=== PATIENT | female | born 1980 | race Two or more races ===

== ENCOUNTER 2017-05-11 08:09 | Emergency (ER) | payer SELFPAY ==
[2017-05-11 08:19] VITALS: BP 130/88
--- NOTE | 2017-05-11 08:39 | EDM.PDOC ---
ED HPI GENERAL MEDICAL PROBLEM - General Chief Complaint: Chest Pain Stated Complaint: CHEST PAIN - 12 HOURS Time Seen by Provider: 05/11/17 08:28 Source of Information: Reports: Patient History Limitations: Reports: No Limitations - History of Present Illness INITIAL COMMENTS - FREE TEXT/NARRATIVE: 37-year-old female presents to the ED with left precordial chest pain which is constant with a pleuritic component at times. Much worse this morning with heaviness that started last night. Some radiation into the right arm and left neck. Also radiates through to her infrascapular area like an arrow was shot 3 to her chest. She's been ill with upper respiratory tract infection which sounds viral with nasal congestion and paroxysmal cough for the better part of 2 weeks. She works at [employer] which many of the elderly patients there have had influenza A. She did not receive a flu shot this year. Second problem is diarrhea loose watery yellow in consistency she's gone 4 times thus far this morning. Associated mild cramps. She has an appetite and she's hungry. She is not back on a full diet but is taking fluids adequately in terms of water and orange juice. She's not been on any antibiotics in the last 6 weeks. Onset: Other (Patient has had upper respiratory tract infection symptoms with nasal congestion and harsh paroxysmal cough for the better part of 12 days. Last night she developed more heaviness in the left precordial chest/with a pleuritic component to the pain was worsened by coughing. She relates reports she is still bringing up some sputum without any hemoptysis. No fever or chills now. She is having some loose stools 4-8 times per day. She denies any blood in the stool. Associated mild dull cramps. Chest pain) Onset Date: 05/10/17 Onset Time: 18:00 Duration: Hour(s): Location: Reports: Chest (Left precordial chest rating to to the infrascapular area of the back. Also left neck.) Quality: Reports: Ache, Stabbing Severity: Moderate Improves with: Reports: None Worsens with: Reports: Other, Movement Context: Denies: Activity, Exercise (Coughing), Lifting, Sick Contact, Trauma, Other Associated Symptoms: Reports: Chest Pain (See history of present illness), Cough (She is to present illness). Denies: Diaphoresis ( still coughing and with some sputum production. 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 Chest Pain Score (Numeric/FACES): 7 - Related Data Allergies Allergy/AdvReac Type Severity Reaction Status Date / Time No Known Allergies Allergy Verified 05/11/17 08:14 Home Meds: Home Meds Diclofenac Sodium [Voltaren] 50 mg PO BID #20 tab.ec 05/11/17 [Rx] predniSONE [Prednisone] 20 mg PO ASDIRECTED #15 tablet 05/11/17 [Rx] Past Medical History - Past Health History Medical/Surgical History: Denies Medical/Surgical History Psychiatric 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: Depression - Past Surgical History GI Surgical 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: Cholecystectomy Social & Family History - Family History Family Medical History: Noncontributory - Tobacco Use Smoking Status *Q: Never Smoker - Alcohol Use Days Per Week of Alcohol Use: 0 - Recreational Drug Use Recreational Drug Use: No - Living Situation & Occupation Living situation: Reports: Occupation: Employed ED ROS GENERAL - Review of Systems Review Of Systems: See Below Constitutional: Reports: Fever, Malaise, Fatigue, Decreased Appetite, Weight Loss (Initially but feels her appetite is returning.). Denies: Chills (With initial onset of illness) HEENT: Reports: Other (Did have nasal congestion and mild sore throat with illness) Respiratory: Reports: Pleuritic Chest Pain, Cough (Currently pleuritic left anterior chest pain intermittent paroxysmal cough with some sputum production by history). Denies: Shortness of Breath, Wheezing, Hemoptysis ( no hemoptysis) Cardiovascular: Reports: Chest Pain. Denies: Blood Pressure Problem, Claudication (See history of present illness), Dyspnea on Exertion, Edema, Lightheadedness, Orthopnea, Palpitations Endocrine: Reports: No Symptoms GI/Abdominal: Reports: Diarrhea (Loose yellow stools. Having anywhere between 4 and 8 per day. No blood has been noted by the patient.) : Reports: No Symptoms Musculoskeletal: Reports: No Symptoms Skin: Reports: No Symptoms Neurological: Reports: No Symptoms Psychiatric: Reports: No Symptoms ED EXAM, GENERAL - Physical Exam Exam: See Below Exam Limited By: No Limitations General Appearance: Alert, WD/WN, No Apparent Distress Eye Exam: Bilateral Eye: Normal Inspection Ears: Normal TMs Throat/Mouth: Normal Inspection, Normal Lips, Normal Teeth, Normal Oropharynx Head: Atraumatic, Normocephalic Neck: Normal Inspection, Supple, Non-Tender, Full Range of Motion. No: Lymphadenopathy (L), Lymphadenopathy (R), Thyromegaly Respiratory/Chest: No Respiratory Distress, Lungs Clear, Normal Breath Sounds, Other (Chest wall tenderness appreciated on palpation ribs 34 and 5 midclavicular line left side.) Cardiovascular: Normal Peripheral Pulses, Regular Rate, Rhythm, No Edema, No Gallop, No Murmur GI/Abdominal: Normal Bowel Sounds, Soft, Non-Tender, No Organomegaly, No Abnormal Bruit, No Mass, Pelvis Stable. No: Tender Back Exam: Normal Inspection, Full Range of Motion. No: CVA Tenderness (L), Paraspinal Tenderness Extremities: Normal Inspection, Normal Range of Motion, Non-Tender, No Pedal Edema Neurological: Alert, Oriented, CN II-XII Intact, Normal Cognition, Normal Gait Psychiatric: Normal Affect, Normal Mood Skin Exam: Warm, Dry, Intact, Normal Color, No Rash EKG INTERPRETATION EKG Date: 05/11/17 Time: 08:22 Rhythm: NSR Rate (Beats/Min): 94 [place]: LAD-Left [place] Deviation (Mild that -8.) P-Wave: Present QRS: Normal ST-T: Normal QT: Normal EKG Interpretation Comments: Borderline ECG. Course - Vital Signs Last Recorded V/S: Last Vital Signs Temp 36.9 C 05/11/17 08:15 Pulse 89 05/11/17 08:15 Resp 16 05/11/17 08:15 BP 130/88 05/11/17 08:15 Pulse Ox 100 05/11/17 08:15 Orthostatic Blood Pressure [ 114/76 Standing] Orthostatic Blood Pressure [ 113/81 Supine] - Orders/Labs/Meds Orders: Active Orders 24 hr Category Date Time Status Orthostatic Vital Signs [RC] ASDIRECTED Care 05/11/17 08:39 Active Labs: Laboratory Tests 05/11/17 05/11/17 05/11/17 Range/Units 09:35 09:35 11:16 WBC 6.13 (3.98-10.04) K/mm3 RBC 4.58 (3.98-5.22) M/mm3 Hgb 14.0 (11.2-15.7) gm/L Hct 41.9 (34.1-44.9) % MCV 91.5 (79.4-94.8) fl MCH 30.6 (25.6-32.2) pg MCHC 33.4 (32.2-35.5) g/dl RDW Std Deviation 41.1 (36.4-46.3) fL Plt Count 249 (182-369) K/mm3 MPV 9.7 (9.4-12.3) fl Neutrophils % (Manual) 71 H (40-60) % Band Neutrophils % 2 (0-10) % Lymphocytes % (Manual) 25 (20-40) % Atypical Lymphs % 0 % Monocytes % (Manual) 1 L (2-10) % Eosinophils % (Manual) 1 (0.7-5.8) % Basophils % (Manual) 0 L (0.1-1.2) Platelet Estimate Adequate RBC Morph Comment Normal Sodium 141 (136-145) mEq/L Potassium 3.9 (3.5-5.1) mEq/L Chloride 106 (98-107) mEq/L Carbon Dioxide 23 (21-32) mEq/L Anion Gap 15.9 H (5-15) BUN 9 (7-18) mg/dL Creatinine 0.7 (0.55-1.02) mg/dL Est Cr Clr Drug Dosing 86.18 mL/min Estimated GFR (MDRD) > 60 (>60) mL/min BUN/Creatinine Ratio 12.9 L (14-18) Glucose 95 (74-106) mg/dL Calcium 9.2 (8.5-10.1) mg/dL Total Bilirubin 0.3 (0.2-1.0) mg/dL AST 15 (15-37) U/L ALT 31 (14-59) U/L Alkaline Phosphatase 53 (46-116) U/L Troponin I < 0.017 (0.00-0.056) ng/mL C-Reactive Protein 0.5 (<1.0) mg/dL Total Protein 7.5 (6.4-8.2) g/dl Albumin 4.0 (3.4-5.0) g/dl Globulin 3.5 gm/dL Albumin/Globulin Ratio 1.1 (1-2) - Radiology Interpretation Free Text/Narrative:: 37-year-old female presents to the ED with reported heaviness left precordial chest that started last evening associate with a intermittent pleuritic component to the pain. She is been ill with upper respiratory tract infection for the better part of 12 days. Still has a bit of a cough that is productive and some diarrhea. She states she's had loose stools for the last several days without any recent antibiotic usage. He is able to eat most things although she' s not back on full diet. She feels she is taking adequate fluids. She does have a pleuritic component to the pain with deep inspiration. Examination reveals pain localized to left anterior chest wall ribs 345 midclavicular line and radiating towards the left axilla. Plan she works at [employer] and is been exposed to influenza. We'll have an influenza screen done even though she may have well completed the course of illness. Two-view chest x-ray be obtained to rule out a pneumonia. Routine labs and orthostatic BPs to be done. Her ECG showed sinus rhythm at 94/m with the mid mild left axis deviation of -8 otherwise normal ECG. Current chest pain does not appear to be cardiac in origin. - Re-Assessments/Exams Free Text/Narrative Re-Assessment/Exam: 05/11/17 09:08 2 view chest x-ray is been completed and is is within normal limits. There is no signs of pneumonia or abnormalities of the pleura or ribs. BX silhouette is normal. 05/11/17 11:03 Labs reveal a normal white count at 6.13 with 71% neutrophils and 2% bands. Hemoglobin is 14 wit hematocrit of 41.9. Platelet count normal 249 ,000. Chemistry reveals a slightly elevated anion gap at 15.9 normal renal function with a creatinine of 0.7. Glucose is 95. C-reactive protein is less than 0.5. Influenza screen is negative. 05/11/17 11:35: Patient is feeling better. Reassured that no heart condition exists. Decision made to place her on short course of prednisone 20 mg twice a day for the next 5 days then 20 mg once daily in the morning for another 5 days and Voltaren 50 mg twice a day for the next 10 days to relieve pain and inflammation chest wall. She will follow-up with personal care physician if any further problem's occur. She was advised that she may get this back off and on in the future and taking anti-inflammatories will usually settle things down. Departure - Departure Time of Disposition: 11:33 Disposition: Home, Self-Care 01 Condition: Fair Clinical Impression: Non-cardiac chest pain, Acute chest wall pain Prescriptions: Diclofenac Sodium [Voltaren] 50 mg PO BID #20 tab.ec predniSONE [Prednisone] 20 mg PO ASDIRECTED #15 tablet Instructions: Chest Wall Pain, [id number] Referrals: Kelly Ness NP [Primary Care Provider] - Forms: ED Department Discharge Additional Instructions: Evaluation the emergency room this morning in regards to development of left anterior chest pain which appears to be chest wall in origin with pain particularly ribs 34 and 5 on examination. This is followed a recent upper respiratory tract infection which is viral by history with nasal congestion and cough. Influenza screen today was negative. Chest x-ray was negative for any infection or other maladies of the lung lining or the ribs. Test to prove to be within normal limits with no signs of infection and negative markers for heart attack. Pain is therefore chest wall in origin coming from the lining of the ribs on the left upper anterior chest. Treatment is anti-inflammatory Voltaren 50 g twice daily for the next 10 days to relieve pain and inflammation. Note this will take about a day and a half to start to work well. Also suggest prednisone 20 mg with breakfast and supper for 5 days and then once only in the morning for another 5 days in an effort to further reduce inflammation. Also takes about a day to become effective. Activity as tolerated with no restrictions at this time. Of note -chest wall pain may be aggravated by pushing and pulling activities. - My Orders Last 24 Hours: My Active Orders 05/11/17 08:39 Orthostatic Vital Signs [RC] ASDIRECTED - Assessment/Plan Last 24 Hours: My Active Orders 05/11/17 08:39 Orthostatic Vital Signs [RC] ASDIRECTED
--- NOTE | 2017-05-11 09:23 | CR ---
Chest: Two views of the chest were obtained. Comparison: Prior chest x-ray of 08/11/15. Heart size and mediastinum are normal. Lungs are clear. Bony structures are unremarkable. Impression: 1. Nothing acute is identified on two-view chest x-ray. Diagnostic code #1
== END 2017-05-11 11:45 | disposition home or self-care (01) ==
LOC: JD.ED 08:09
DX: R07.89 Other chest pain (principal)
CPT/HCPCS: 36415; 71046; 71046-26; 80053; 84484; 85025; 86140; 87804; 93010; 99283-25; 99285

== ENCOUNTER 2017-10-26 07:32 | Day surgery (SDC) | payer BC ==
[~2017-10-26 07:32] MED LIST: Lidocaine 1%/Sod Bicarbonate in NS 8.4% 1 ML Syringe IDERM PRN; Sodium Chloride 0.9% 10 ML Syringe FLUSH PRN
--- NOTE | 2017-10-26 07:51 | PCM.PREANE ---
Preanesthetic Assessment - Anesthesia/Transfusion/Family Hx Anesthesia History: Prior Anesthesia Without Reaction Family History of Anesthesia Reaction: No Transfusion History: No Prior Transfusion(s) Intubation History: Unknown - Review of Systems General: No Symptoms Pulmonary: No Symptoms, Pleuritic Chest Pain (Reported to ER in April with negative heart workup noted.) Cardiovascular: No Symptoms, Palpitations (anxiety attacks), Lightheadedness ( with anxiety attacks) Gastrointestinal: No Symptoms (History of acute pancreatitits 2002 with gall bladder attack.) Neurological: No Symptoms (history of vertigo, but no PONV with cholecystectomy) Other: Reports: Sinus Problem (seasonal allergies), Depression, Anxiety - Physical Assessment NPO Status Date: 10/25/17 NPO Status Time: 21:30 Pulse: 87 O2 Sat by Pulse Oximetry: 100 Respiratory Rate: 20 Blood Pressure: 121/77 Temperature: 37.0 C Height: 1.57 m Weight: 73 kg ASA Class: 2 Mental Status: Alert & Oriented x3 Airway Class: Mallampati = 2 Dentition: Reports: Normal Dentition, Caries Thyro-Mental Finger Breadths: 3 Mouth Opening Finger Breadths: 3 ROM/Head Extension: Full Lungs: Clear to Auscultation, Normal Respiratory Effort Cardiovascular: Regular Rate, Regular Rhythm, No Murmurs - Lab Values: Laboratory Last Values WBC 5.47 K/mm3 (3.98-10.04) 10/25/17 11:11 RBC 4.62 M/mm3 (3.98-5.22) 10/25/17 11:11 Hgb 14.1 gm/L (11.2-15.7) 10/25/17 11:11 Hct 42.5 % (34.1-44.9) 10/25/17 11:11 MCV 92.0 fl (79.4-94.8) 10/25/17 11:11 MCH 30.5 pg (25.6-32.2) 10/25/17 11:11 MCHC 33.2 g/dl (32.2-35.5) 10/25/17 11:11 RDW Std Deviation 41.6 fL (36.4-46.3) 10/25/17 11:11 Plt Count 272 K/mm3 (182-369) 10/25/17 11:11 MPV 9.5 fl (9.4-12.3) 10/25/17 11:11 Neut % (Auto) 60.6 % (34.0-71.1) 10/25/17 11:11 Lymph % (Auto) 26.9 % (19.3-51.7) 10/25/17 11:11 [place] % (Auto) 11.2 % (4.7-12.5) 10/25/17 11:11 Eos % (Auto) 0.9 (0.7-5.8) 10/25/17 11:11 Baso % (Auto) 0.2 % (0.1-1.2) 10/25/17 11:11 Neut # (Auto) 3.32 K/mm3 (1.56-6.13) 10/25/17 11:11 Lymph # (Auto) 1.47 K/mm3 (1.18-3.74) 10/25/17 11:11 [place] # (Auto) 0.61 K/mm3 (0.24-0.36) H 10/25/17 11:11 Eos # (Auto) 0.05 K/mm3 (0.04-0.36) 10/25/17 11:11 Baso # (Auto) 0.01 K/mm3 (0.01-0.08) 10/25/17 11:11 Creatinine 0.8 mg/dL (0.55-1.02) 10/25/17 11:11 Est Cr Clr Drug Dosing TNP 10/25/17 11:11 Estimated GFR (MDRD) > 60 mL/min (>60) 10/25/17 11:11 Urine Color Yellow (Yellow) 10/25/17 11:11 Urine Appearance Clear (Clear) 10/25/17 11:11 Urine pH 6.0 (5.0-8.0) 10/25/17 11:11 Ur Specific [place] 1.020 (1.005-1.030) 10/25/17 11:11 Urine Protein Negative (Negative) 10/25/17 11:11 Urine Glucose (UA) Negative (Negative) 10/25/17 11:11 Urine Ketones Negative (Negative) 10/25/17 11:11 Urine Occult Blood 1+ (Negative) H 10/25/17 11:11 Urine Nitrite Negative (Negative) 10/25/17 11:11 Urine Bilirubin Negative (Negative) 10/25/17 11:11 Urine Urobilinogen 0.2 (0.2-1.0) 10/25/17 11:11 Ur Leukocyte Esterase Trace (Negative) H 10/25/17 11:11 Urine RBC 0-5 /hpf (0-5) 10/25/17 11:11 Urine WBC 0-5 /hpf (0-5) 10/25/17 11:11 Ur Epithelial Cells 0-5 /hpf (0-5) 10/25/17 11:11 Urine Bacteria Not seen /hpf (FEW) 10/25/17 11:11 Urine Mucus Not seen /hpf (FEW) 10/25/17 11:11 Blood Type O POSITIVE 10/25/17 11:11 Gel Antibody Screen Negative 10/25/17 11:11 Above labs reviewed and noted and within acceptable ranges to proceed with scheduled procedure. - Imaging/EKG Impressions: EKG: SR rate = 94 CXR: negative - Allergies Allergies/Adverse Reactions: Allergies Allergy/AdvReac Type Severity Reaction Status Date / Time No Known Allergies Allergy Verified 10/25/17 12:15 - Anesthesia Plan Pre-Op Medication Ordered: None - Acknowledgements Anesthesia Type Planned: General Anesthesia Pt an Appropriate Candidate for the Planned Anesthesia: Yes Alternatives and Risks of Anesthesia Discussed w Pt/Guardian: Yes Pt/Guardian Understands and Agrees with Anesthesia Plan: Yes PreAnesthesia Questionnaire - Past Health History Medical/Surgical History: Denies Medical/Surgical History HEENT 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: Impaired Vision Cardiovascular 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: None Respiratory 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: None Gastrointestinal 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: Pancreatitis Genitourinary 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: None 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: , Other (See Below) Other OB/BYN History: dysmenorrhea, irregular menses, menorrhagia, pelvic congestion syndrome Musculoskeletal 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: None Neurological 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: None Psychiatric 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: Anxiety, Depression, Other (See Below) Other Psychiatric History: insomnia Endocrine/Metabolic 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: None Hematologic 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: None Immunologic 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: None Oncologic (Cancer) 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: None Dermatologic 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: None - Past Surgical History Head Surgeries/Procedures: Reports: None HEENT Surgical 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: None Cardiovascular Surgical 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: None Respiratory Surgical 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: None GI Surgical 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: Cholecystectomy Female Surgical 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: None Male Surgical 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: None Endocrine Surgical 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: None Neurological Surgical 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: None Musculoskeletal Surgical 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: None Dermatological Surgical 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: None - SUBSTANCE USE Smoking Status *Q: Never Smoker Recreational Drug Use History: No - HOME MEDS Home Medications: Home Meds DULoxetine HCl [Duloxetine HCl] 60 mg PO DAILY 10/25/17 [History] Zolpidem Tartrate 5 mg PO BEDTIME PRN 10/25/17 [History] - CURRENT (IN HOUSE) MEDS Current Meds: Current Medications Lactated Ringer's (Ringers, Lactated) 1,000 mls @ 125 mls/hr IV ASDIRECTED BRANDON Stop: 10/26/17 23:00 Lidocaine/Sodium Bicarbonate (Buffered Lidocaine 1% In Ns 8.4%) 0.25 ml IDERM ONETIME PRN PRN Reason: Prior to IV Start Stop: 10/26/17 18:00 Sodium Chloride (Saline Flush) 10 ml FLUSH ASDIRECTED PRN PRN Reason: Keep Vein Open Stop: 10/26/17 18:00
[2017-10-26] MEDS: Lactated Ringers 1,000 ML IV SCH ×2 (07:55→12:48)
[2017-10-26] MEDS ORDERED: Dexamethasone 4 MG/ML SDV ONE (08:21)
[2017-10-26] MEDS ORDERED: Ondansetron 4 MG/2 ML SDV ONE (08:21)
[2017-10-26] MEDS ORDERED: Propofol 200 MG/20 ML SDV ONE (08:21)
[2017-10-26] MEDS ORDERED: Ketorolac 30 MG/ML SDV ONE (08:21)
[2017-10-26] MEDS ORDERED: Rocuronium 50 MG/5 ML Vial ONE (08:21)
[2017-10-26] MEDS ORDERED: Lactated Ringers 1,000 ML ONE (08:21)
[2017-10-26] MEDS ORDERED: ceFAZolin 1 GM Vial ONE (08:21)
[2017-10-26] MEDS ORDERED: HYDROmorphone 0.5 MG/0.5 ML Syringe ONE (08:21)
[2017-10-26] MEDS ORDERED: Lidocaine 1% 4 ML ONE (08:21)
[2017-10-26] MEDS ORDERED: Midazolam 1 MG/ML 2 ML SDV ONE (08:22)
[2017-10-26] MEDS ORDERED: fentaNYL 250 MCG/5 ML SDV ONE (08:23)
[2017-10-26] MEDS ORDERED: Sodium Chloride 0.9% 50 ML SDV ONE (08:39)
[2017-10-26] MEDS ORDERED: Lidocaine 1% with EPINEPHrine 1:100,000 20 ML MDV ONE (08:39)
[2017-10-26] MEDS ORDERED: Ondansetron 4 MG/2 ML SDV IVPUSH PRN ×2 (09:38→10:17)
[2017-10-26] MEDS ORDERED: Meperidine PF 50 MG/ML Syringe IVPUSH PRN (09:38)
[2017-10-26] MEDS ORDERED: ePHEDrine 50 MG/ML SDV IVPUSH PRN (09:38)
[2017-10-26] MEDS ORDERED: Midazolam 1 MG/ML 2 ML SDV IVPUSH PRN (09:38)
[2017-10-26] MEDS ORDERED: diphenhydrAMINE 50 MG/ML SDV IVPUSH PRN (09:38)
[2017-10-26] MEDS ORDERED: HYDROmorphone 0.5 MG/0.5 ML Syringe IVPUSH PRN (09:39)
[2017-10-26] MEDS ORDERED: Neostigmine Methylsulfate 1 MG/ML 5 ML Syringe ONE (09:41)
--- NOTE | 2017-10-26 10:22 | PCM.OPNOTE ---
- General Post-Op/Procedure Note Date of Surgery/Procedure: 10/26/17 Operative Procedure(s): Total vaginal hysterectomy with bilateral salpingectomy Findings: Uterus tubes and ovaries appeared to be relatively normal. Cervix is multiparous in appearance Pre Op Diagnosis: 1. Menorrhagia. 2. Dysmenorrhea. 3. Pelvic congestion syndrome Post-Op Diagnosis: Same Anesthesia Technique: General ET Tube Other Anesthesia Type: Lidocaine quarter percent with epinephrine Primary Surgeon: Aung Noble Secondary Surgeon: Jayden Joiner Anesthesia Provider: Naty Hopkins General Purchasing Agent: Nidia Hatch Reason General Purchasing Agent Was Necessary: Retraction, assistance, quality of care, patient safety Role of General Purchasing Agent: Retraction, assistance Pathology: Uterus, tubes and ovaries in one container Fluid Replacement, Intraop: 1,100 EBL in mLs: 220 Complications: None Condition: Good Free Text/Narrative:: Surgery duration: 42 minutes Procedure: The patient was placed in supine position on the operating table. General endotracheal anesthesia was accomplished. After positioning, and adequate prep and drape, the procedure was then performed. Sterile speculum was placed in the vagina and cervix was visualized. Cervix was injected with lidocaine quarter percent with epinephrine-20 mL used. A full circumference incision was made in the cervical epithelium. The bladder was pushed well back off cervix. Posterior cul-de-sac was then entered sharply without problems. Left uterosacral was crossclamped with a Enseal vessel closure system. The left uterosacral and then the right uterosacral ligament pedicles were developed using the Enseal system. The anterior cul-de-sac was then entered without problems and the uterine vasculature, cardinal ligament and broad ligament then developed using Enseal vessel closure system. The uterus was inverted at this time and upper broad ligament fallopian tube pedicles were crossclamped with Tyrel clamps. Specimen was totally removed. Both these pedicles were then secured with a Enseal vessel closure system. Left and right fallopian tube was normal in appearance.. Using Enseal vessel closure system each of the tubes was then removed and sent with the specimen. The Enseal vessel closure system was used to remove both ovaries. The patient was found to be hemostatically intact at this time. Vaginal cuff was sutured for hemostatic reasons with a running locked suture of 0 Monocryl from the 2 o' clock position to the 10 o'clock position posteriorly. Vaginal cuff was then closed from right to left side with a running locked suture of 0 Monocryl. Patient was returned to supine position and awakened from general endotracheal anesthesia. She tolerated the procedure was then left the operating room in satisfactory condition.
--- NOTE | 2017-10-26 10:34 | PCM.POSTAN ---
POST ANESTHESIA ASSESSMENT - MENTAL STATUS Mental Status: Alert - VITAL SIGNS Pulse Rate: 76 SaO2: 99 Resp Rate: 17 Blood Pressure: 99/60 Temperature: 36.8 C - RESPIRATORY Respiratory Status: Respiratory Rate WNL, Airway Patent, O2 Saturation Stable, Supplemental Oxygen - CARDIOVASCULAR CV Status: Pulse Rate WNL, Blood Pressure Stable - GASTROINTESTINAL GI Status: No Symptoms - POST OP HYDRATION Hydration Status: Adequate & Stable
[2017-10-26] MEDS: fentaNYL 100 MCG/2 ML SDV IVPUSH PRN ×2 (10:35→10:57)
--- NOTE | 2017-10-26 11:19 | PCM48HPAN ---
Post Anesthesia Note - EVALUATION WITHIN 48HRS OF ANESTHETIC Vital Signs in Normal Range: Yes Patient Participated in Evaluation: Yes Respiratory Function Stable: Yes Airway Patent: Yes Cardiovascular Function Stable: Yes Hydration Status Stable: Yes Pain Control Satisfactory: Yes Nausea and Vomiting Control Satisfactory: Yes Mental Status Recovered: Yes
[2017-10-26] MEDS: Acetaminophen/oxyCODONE 325-5 MG Tab PO PRN ×2 (11:50→12:41)
[2017-10-26 14:48] VITALS: BP 113/68
== END 2017-10-26 14:40 | disposition home or self-care (01) ==
LOC: JD.SDS 07:32
PROVIDERS: ATTEND Obstetrics & Gynecology
DX: N80.0 Endometriosis of uterus (principal); N72 Inflammatory disease of cervix uteri; N88.8 Other specified noninflammatory disorders of cervix uteri; N83.8 Other noninflammatory disorders of ovary, fallopian tube and broad ligament; N94.89 Other specified conditions associated with female genital organs and menstrual cycle; F41.9 Anxiety disorder, unspecified; F32.9 Major depressive disorder, single episode, unspecified; Z79.899 Other long term (current) drug therapy
CPT/HCPCS: 36415; 58262; 81001; 81025; 82565; 85025; 86850; 86900; 86901; 87086; A9270; J0690; J1100; J1170; J1885; J2001; J2250; J2405; J2710; J3010; J7120; J2704

== ENCOUNTER 2017-10-26 20:46 | Emergency (ER) | payer BC ==
[2017-10-26 20:55] VITALS: BP 131/78
--- NOTE | 2017-10-26 21:46 | EDM.PDOC ---
ED HPI GENERAL MEDICAL PROBLEM - General Chief Complaint: Gastrointestinal Problem Stated Complaint: NAUSEA Time Seen by Provider: 10/26/17 21:15 Source of Information: Reports: Patient History Limitations: Reports: No Limitations - History of Present Illness INITIAL COMMENTS - FREE TEXT/NARRATIVE: Naa is a 37yo female presents ambulatory to ED tonight accompanied by her with nausea and vomiting today. She is s/p vaginal hysterectomy this morning with Dr. Noble. States she took percocet around noon and again at 4: 30pm, she has not eaten today. She was nauseated most of the day, has vomited twice since 4pm. She feels very anxious tonight. No f/c/s, no diarrhea- no BM today. No CP, SOB, palpitations. She has had a LYLES today. NKDA Onset: Today Location: Reports: Abdomen Perineal Area Pain Score (Numeric/FACES): 3 - Related Data Allergies Allergy/AdvReac Type Severity Reaction Status Date / Time No Known Allergies Allergy Verified 10/26/17 20:51 Home Meds: Home Meds DULoxetine HCl [Duloxetine HCl] 60 mg PO DAILY 10/25/17 [History] Zolpidem Tartrate 5 mg PO BEDTIME PRN 10/25/17 [History] Acetaminophen/oxyCODONE [Percocet 325-5 MG] 2 tab PO Q4H PRN tablet 10/26/17 [ Rx] Ibuprofen 600 mg PO Q4H PRN #30 tablet 10/26/17 [Rx] Past Medical History - Past Health History Medical/Surgical History: Denies Medical/Surgical History HEENT 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: Impaired Vision Cardiovascular 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: None Respiratory 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: None Gastrointestinal 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: Pancreatitis Genitourinary 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: None 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: , 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 (See Below) 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: dysmenorrhea, irregular menses, menorrhagia, pelvic congestion syndrome Musculoskeletal 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: None Neurological 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: None Psychiatric 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: Anxiety, Depression, Other (See Below) Other Psychiatric History: insomnia Endocrine/Metabolic 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: None Hematologic 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: None Immunologic 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: None Oncologic (Cancer) 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: None Dermatologic 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: None - Past Surgical History Head Surgeries/Procedures: Reports: None HEENT Surgical 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: None Cardiovascular Surgical 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: None Respiratory Surgical 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: None GI Surgical 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: Cholecystectomy Female Surgical 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: None, Hysterectomy Endocrine Surgical 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: None Neurological Surgical 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: None Musculoskeletal Surgical 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: None Dermatological Surgical 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: None Social & Family History - Family History Family Medical History: Noncontributory - Tobacco Use Smoking Status *Q: Never Smoker - Caffeine Use Caffeine Use: Reports: Tea - Living Situation & Occupation Living situation: Reports: Occupation: Employed ED ROS GENERAL - Review of Systems Review Of Systems: ROS reveals no pertinent complaints other than HPI. Constitutional: Reports: Malaise, Weakness, Fatigue, Decreased Appetite. Denies : Fever, Chills, Diaphoresis HEENT: Reports: No Symptoms Respiratory: Reports: No Symptoms. Denies: Shortness of Breath, Cough Cardiovascular: Reports: No Symptoms. Denies: Chest Pain, Palpitations GI/Abdominal: Reports: Abdominal Pain (pelvic, s/p hysterectomy today, no epigastric pain), Nausea, Vomiting. Denies: Constipation, Diarrhea, Hematemesis : Reports: No Symptoms, Other ("normal" vaginal bleeding, nothing concerning) Neurological: Reports: Dizziness Psychiatric: Reports: Anxiety ED EXAM, GI/ABD - Physical Exam Exam: See Below Exam Limited By: No Limitations General Appearance: Alert, WD/WN, No Apparent Distress Eyes: Bilateral: EOMI Ears: Normal External Exam, Hearing Grossly Normal Nose: Normal Inspection Throat/Mouth: Normal Inspection, Normal Lips, Normal Voice, No Airway Compromise Head: Atraumatic, Normocephalic Neck: Normal Inspection Respiratory/Chest: No Respiratory Distress, Lungs Clear, Normal Breath Sounds Cardiovascular: Regular Rate, Rhythm, No Edema, No Murmur GI/Abdominal Exam: Normal Bowel Sounds, Soft, Tender (mild tenderness to lower abd/pelvis, no epigastric pain). No: Guarding, Rigid, Rebound (Female) Exam: Deferred Rectal (Female) Exam: Deferred Back Exam: Normal Inspection Extremities: Normal Inspection, No Pedal Edema Neurological: Alert, Oriented, CN II-XII Intact, Normal Cognition Psychiatric: Normal Affect, Normal Mood Skin Exam: Warm, Dry, Intact Course - Vital Signs Last Recorded V/S: Last Vital Signs Temp 98.3 F 10/26/17 20:51 Pulse 94 10/26/17 20:51 Resp BP 131/78 10/26/17 20:51 Pulse Ox 98 10/26/17 20:51 - Orders/Labs/Meds Labs: Laboratory Tests 10/26/17 Range/Units 22:30 Sodium 133 L (136-145) mEq/L Potassium 3.8 (3.5-5.1) mEq/L Chloride 99 (98-107) mEq/L Carbon Dioxide 25 (21-32) mEq/L Anion Gap 12.8 (5-15) BUN 8 (7-18) mg/dL Creatinine 0.7 (0.55-1.02) mg/dL Est Cr Clr Drug Dosing 86.18 mL/min Estimated GFR (MDRD) > 60 (>60) mL/min BUN/Creatinine Ratio 11.4 L (14-18) Glucose 121 H (74-106) mg/dL Calcium 8.8 (8.5-10.1) mg/dL Meds: Medications Discontinued Medications Generic Name Dose Route Start Last Admin Trade Name Freq PRN Reason Stop Dose Admin Famotidine 20 mg 10/26/17 21:57 10/26/17 22:25 Pepcid IVPUSH 10/26/17 21:58 20 mg ONETIME ONE Administration Sodium Chloride 1,000 mls @ 999 mls/hr 10/26/17 21:57 10/26/17 22:25 Normal Saline IV 10/26/17 22:57 999 mls/hr ONETIME ONE Administration Lorazepam 0.25 mg 10/26/17 21:57 10/26/17 22:25 Ativan IVPUSH 10/26/17 21:58 0.25 mg ONETIME ONE Administration Ondansetron HCl 4 mg 10/26/17 21:57 10/26/17 22:25 Zofran IVPUSH 10/26/17 21:58 4 mg ONETIME ONE Administration - Re-Assessments/Exams Free Text/Narrative Re-Assessment/Exam: 10/26/17 22:51 Patient feels very dry and parched- IVF ordered along with zofran, small dose of ativan for anxiety and pepcid IVP. BMP ordered and still pending. Free Text/Narrative Re-Assessment/Exam: 10/26/17 23:26 Feeling much better, nausea resolved, anxiety improved. Will rx zofran from [facility], recommend take all pain medications/motrin with food. Review essentially normal lab results. After fluids finished and if she tolerates crackers/water she will be discharged home. Departure - Departure Time of Disposition: 23:27 Disposition: Home, Self-Care 01 Condition: Good Clinical Impression: Nausea and vomiting after administration of anesthetic agent - Discharge Information *PRESCRIPTION DRUG MONITORING PROGRAM REVIEWED*: Not Applicable *COPY OF PRESCRIPTION DRUG MONITORING REPORT IN PATIENT JAIRO: Not Applicable Instructions: Nausea and Vomiting, Adult, Pain Medicine Instructions, Easy-to- Read Referrals: Aung Noble MD [Primary Care Provider] - Forms: ED Department Discharge Additional Instructions: Push fluids, bland foods. Take all pain medication with food. Your nausea and vomiting is likely due to taking pain medications on an empty stomach today. Follow up with Dr. Noble as instructed for postoperative check Follow up with Primary Care provider if not improving in the next 1-2 days, you can return to ER if needed for vomiting that is persistent, fever, other concerns.
[2017-10-26] MEDS ORDERED: Sodium Chloride 0.9% 1,000 ML IV ONE (21:57)
[2017-10-26] MEDS ORDERED: Famotidine 20 MG/2 ML SDV IVPUSH ONE (21:57)
[2017-10-26] MEDS ORDERED: Ondansetron 4 MG/2 ML SDV IVPUSH ONE (21:57)
[2017-10-26] MEDS ORDERED: LORazepam 2 MG/ML SDV IVPUSH ONE (21:57)
== END 2017-10-26 23:44 | disposition home or self-care (01) ==
LOC: JD.ED 20:46
DX: R11.2 Nausea with vomiting, unspecified (principal); T39.1X5A Adverse effect of 4-Aminophenol derivatives, initial encounter; F41.9 Anxiety disorder, unspecified; F32.9 Major depressive disorder, single episode, unspecified; Z79.899 Other long term (current) drug therapy
CPT/HCPCS: 36415; 80048; 96361; 96374; 96375; 99283; J2060; J2405; J7040; 99284

== ENCOUNTER 2017-11-07 12:06 | Emergency (ER) | payer BC ==
[2017-11-07 12:15] VITALS: BP 103/66
--- NOTE | 2017-11-07 13:26 | EDM.PDOC ---
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 She states that when she stands up she feels like "something is going to fall out" and there is 8/10 pain and pressure in the left lower quadrant as well as on the outer aspect of the periarea. She is currently taking Tylenol and Ibuprofen for pain every 4 hours, which has helped alleviate the pain to about 4/10 pain. Rest makes it better. She is currently not bleeding, but states she was bleeding 2 days ago. She also complains of some nausea and had diarrhea 2 days ago. She denies fever/ chills, vomiting, or other complaints at this time. Perineal Area Pain Score (Numeric/FACES): 4 - Related Data Allergies Allergy/AdvReac Type Severity Reaction Status Date / Time No Known Allergies Allergy Verified 11/07/17 12:15 Home Meds: Home Meds Zolpidem Tartrate 5 mg PO BEDTIME PRN 10/25/17 [History] Acetaminophen/oxyCODONE [Percocet 325-5 MG] 2 tab PO Q4H PRN tablet 10/26/17 [ Rx] Ibuprofen 600 mg PO Q4H PRN #30 tablet 10/26/17 [Rx] Acetaminophen [Acetaminophen Extra Strength] 2 tab PO Q6H PRN 11/07/17 [History] Past Medical History - Past Health History Medical/Surgical History: Denies Medical/Surgical History HEENT 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: Impaired Vision Cardiovascular 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: None Respiratory 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: None Gastrointestinal 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: Pancreatitis Genitourinary 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: None 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: , 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 (See Below) 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: dysmenorrhea, irregular menses, menorrhagia, pelvic congestion syndrome Musculoskeletal 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: None Neurological 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: None Psychiatric 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: Anxiety, Depression, Other (See Below) Other Psychiatric History: insomnia Endocrine/Metabolic 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: None Hematologic 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: None Immunologic 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: None Oncologic (Cancer) 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: None Dermatologic 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: None - Past Surgical History Head Surgeries/Procedures: Reports: None HEENT Surgical 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: None Cardiovascular Surgical 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: None Respiratory Surgical 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: None GI Surgical 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: Cholecystectomy Female Surgical 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: None, Hysterectomy Endocrine Surgical 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: None Neurological Surgical 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: None Musculoskeletal Surgical 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: None Dermatological Surgical 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: None Social & Family History - Family History Family Medical History: Noncontributory - Tobacco Use Smoking Status *Q: Never Smoker - Caffeine Use Caffeine Use: Reports: Tea - Recreational Drug Use Recreational Drug Use: No - Living Situation & Occupation Living situation: Reports: Occupation: Employed ED ROS GENERAL - Review of Systems Review Of Systems: See Below Constitutional: Reports: Fatigue. Denies: Fever, Chills Respiratory: Reports: No Symptoms. Denies: Shortness of Breath, Wheezing, Cough Cardiovascular: Reports: No Symptoms. Denies: Chest Pain, Dyspnea on Exertion Endocrine: Reports: Fatigue GI/Abdominal: Reports: Abdominal Pain (LLQ when standing 8/10), Decreased Appetite, Nausea. Denies: Vomiting : Reports: Dysuria, Other (no current bleeding). Denies: Flank Pain, Hematuria Musculoskeletal: Reports: No Symptoms Skin: Reports: No Symptoms Neurological: Reports: No Symptoms Psychiatric: Reports: Anxiety ED EXAM, RENAL/ - Physical Exam Exam: See Below Exam Limited By: No Limitations General Appearance: Alert, WD/WN, Anxious Eye Exam: Bilateral Eye: PERRL Ears: Normal External Exam, Hearing Grossly Normal Nose: Normal Inspection Head: Atraumatic, Normocephalic Respiratory/Chest: No Respiratory Distress, Lungs Clear, Normal Breath Sounds, No Accessory Muscle Use, Chest Non-Tender Cardiovascular: Normal Peripheral Pulses, Regular Rate, Rhythm, No Edema, No Gallop, No JVD, No Murmur, No Rub GI/Abdominal: Soft, Non-Tender, No Organomegaly, No Distention, No Abnormal Bruit, No Mass, Abnormal Bowel Sounds (hypoactive). No: Guarding (Female) Exam: Deferred (Dr. Kumar will do this part of the exam) Rectal (Female) Exam: Deferred Back Exam: Normal Inspection, Full Range of Motion, NT Extremities: Normal Inspection, Normal Range of Motion, Non-Tender, Normal Capillary Refill, No Pedal Edema Neurological: Alert, Oriented, CN II-XII Intact, Normal Cognition, Normal Gait, Normal Reflexes, No Motor/Sensory Deficits Psychiatric: Normal Affect, Anxious Skin Exam: Warm, Dry, Intact, Normal Color, No Rash Course - Vital Signs Last Recorded V/S: Last Vital Signs Temp 98.7 F 11/07/17 12:11 Pulse 73 11/07/17 12:11 Resp 16 11/07/17 12:11 BP 103/66 11/07/17 12:11 Pulse Ox 100 11/07/17 12:11 - Orders/Labs/Meds Orders: Active Orders 24 hr Category Date Time Status CULTURE URINE [RM] Stat Lab 11/07/17 13:15 Ordered URINALYSIS W/MICROSCOPIC [UA W/MICROSCOPIC] [URIN] Stat Lab 11/07/17 12:51 Ordered Labs: Laboratory Tests 11/07/17 11/07/17 11/07/17 Range/Units 13:14 13:14 13:15 WBC 8.09 (3.98-10.04) K/mm3 RBC 4.35 (3.98-5.22) M/mm3 Hgb 13.5 (11.2-15.7) gm/L Hct 39.7 (34.1-44.9) % MCV 91.3 (79.4-94.8) fl MCH 31.0 (25.6-32.2) pg MCHC 34.0 (32.2-35.5) g/dl RDW Std Deviation 40.9 (36.4-46.3) fL Plt Count 258 (182-369) K/mm3 MPV 9.6 (9.4-12.3) fl Neut % (Auto) 71.9 H (34.0-71.1) % Lymph % (Auto) 17.4 L (19.3-51.7) % [place] % (Auto) 8.9 (4.7-12.5) % Eos % (Auto) 1.0 (0.7-5.8) Baso % (Auto) 0.1 (0.1-1.2) % Neut # (Auto) 5.81 (1.56-6.13) K/mm3 Lymph # (Auto) 1.41 (1.18-3.74) K/mm3 [place] # (Auto) 0.72 H (0.24-0.36) K/mm3 Eos # (Auto) 0.08 (0.04-0.36) K/mm3 Baso # (Auto) 0.01 (0.01-0.08) K/mm3 Sodium 137 (136-145) mEq/L Potassium 4.0 (3.5-5.1) mEq/L Chloride 103 (98-107) mEq/L Carbon Dioxide 26 (21-32) mEq/L Anion Gap 12.0 (5-15) BUN 11 (7-18) mg/dL Creatinine 0.9 (0.55-1.02) mg/dL Est Cr Clr Drug Dosing 67.03 mL/min Estimated GFR (MDRD) > 60 (>60) mL/min BUN/Creatinine Ratio 12.2 L (14-18) Glucose 108 H (74-106) mg/dL Calcium 8.9 (8.5-10.1) mg/dL Total Bilirubin 0.2 (0.2-1.0) mg/dL AST 14 L (15-37) U/L ALT 31 (14-59) U/L Alkaline Phosphatase 80 (46-116) U/L C-Reactive Protein 0.9 (<1.0) mg/dL Total Protein 7.5 (6.4-8.2) g/dl Albumin 4.0 (3.4-5.0) g/dl Globulin 3.5 gm/dL Albumin/Globulin Ratio 1.1 (1-2) Urine Color Light yellow (Yellow) Urine Appearance Clear (Clear) Urine pH 6.5 (5.0-8.0) Ur Specific [place] 1.010 (1.005-1.030) Urine Protein Negative (Negative) Urine Glucose (UA) Negative (Negative) Urine Ketones Negative (Negative) Urine Occult Blood Negative (Negative) Urine Nitrite Negative (Negative) Urine Bilirubin Negative (Negative) Urine Urobilinogen 0.2 (0.2-1.0) Ur Leukocyte Esterase Negative (Negative) Urine RBC Not seen (0-5) /hpf Urine WBC 0-5 (0-5) /hpf Ur Epithelial Cells Not seen (0-5) /hpf Urine Bacteria Not seen (FEW) /hpf Urine Mucus Not seen (FEW) /hpf - Re-Assessments/Exams Free Text/Narrative Re-Assessment/Exam: 11/07/17 13:15 I have ordered a U/A and culture to r/o UTI d/t her burning on urination symptoms. I have also ordered labs to help r/o infection. I consulted with our on-call [facility], Dr. Kumar, who states that a pelvic exam and pelvic or transvaginal U/S be done. He will be coming to examine the patient himself. 11/07/17 13:33 Labs are back. WBC are normal. 11/07/17 13:57 Dr. Kumar has seen the patient and has done a pelvic exam. We will not order an U /S. He will prescribe an antibiotic and have her f/u with her OBGYN, Dr. Noble , next week. U/A does not show UTI. Departure - Departure Time of Disposition: 14:05 Disposition: Home, Self-Care 01 Condition: Good Clinical Impression: Pain in pelvis, Burning with urination - Discharge Information *PRESCRIPTION DRUG MONITORING PROGRAM REVIEWED*: Not Applicable *COPY OF PRESCRIPTION DRUG MONITORING REPORT IN PATIENT JAIRO: Not Applicable Instructions: Vaginal Hysterectomy, Care After Referrals: Aung Noble MD [Primary Care Provider] - Forms: ED Department Discharge Additional Instructions: You were seen in the ED today for pain after hysterectomy. Your labs did not show a UTI. You were seen by Dr. Kumar who will prescribe you antibiotics and recommends you see your OBGyn, Dr. Noble, next week. Please return to the ED if worsening of symptoms and/or fever. - My Orders Last 24 Hours: My Active Orders 11/07/17 12:51 URINALYSIS W/MICROSCOPIC [UA W/MICROSCOPIC] [URIN] Stat 11/07/17 13:15 CULTURE URINE [RM] Stat - Assessment/Plan Last 24 Hours: My Active Orders 11/07/17 12:51 URINALYSIS W/MICROSCOPIC [UA W/MICROSCOPIC] [URIN] Stat 11/07/17 13:15 CULTURE URINE [RM] Stat
--- NOTE | 2017-11-07 14:03 | PCM.CONSN ---
- General Info Date of Service: 11/07/17 Admission Dx/Problem (Free Text): 37 y/o S/P TVH by Dr Noble 10/26/2017, presented to ER C/O increased vaginal secretions and dysuria, and LLQ pain. No fever reported. Asked to see patient by SUPERVISOR BLOOD in ER (Tammie). Patient denied coitus since surgery. No constant leaking of urine. No diarrhea. Some increased vaginal secretions. UA no bacteria seen Functional Status: Reports: Pain Controlled - Review of Systems General: Reports: No Symptoms HEENT: Reports: No Symptoms Pulmonary: Reports: No Symptoms Cardiovascular: Reports: No Symptoms Gastrointestinal: Reports: Other (LLQ pain) Genitourinary: Reports: Dysuria (urine culture ordered), Other (increased vaginal secretions.) Musculoskeletal: Reports: No Symptoms Skin: Reports: No Symptoms Neurological: Reports: No Symptoms Psychiatric: Reports: No Symptoms - Patient Data Vitals - Most Recent: Last Vital Signs Temp 98.7 F 11/07/17 12:11 Pulse 73 11/07/17 12:11 Resp 16 11/07/17 12:11 BP 103/66 11/07/17 12:11 Pulse Ox 100 11/07/17 12:11 Weight - Most Recent: 166 lb Lab Results Last 24 Hours: Laboratory Results - last 24 hr 11/07/17 11/07/17 11/07/17 Range/Units 13:14 13:14 13:15 WBC 8.09 (3.98-10.04) K/mm3 RBC 4.35 (3.98-5.22) M/mm3 Hgb 13.5 (11.2-15.7) gm/L Hct 39.7 (34.1-44.9) % MCV 91.3 (79.4-94.8) fl MCH 31.0 (25.6-32.2) pg MCHC 34.0 (32.2-35.5) g/dl RDW Std Deviation 40.9 (36.4-46.3) fL Plt Count 258 (182-369) K/mm3 MPV 9.6 (9.4-12.3) fl Neut % (Auto) 71.9 H (34.0-71.1) % Lymph % (Auto) 17.4 L (19.3-51.7) % [place] % (Auto) 8.9 (4.7-12.5) % Eos % (Auto) 1.0 (0.7-5.8) Baso % (Auto) 0.1 (0.1-1.2) % Neut # (Auto) 5.81 (1.56-6.13) K/mm3 Lymph # (Auto) 1.41 (1.18-3.74) K/mm3 [place] # (Auto) 0.72 H (0.24-0.36) K/mm3 Eos # (Auto) 0.08 (0.04-0.36) K/mm3 Baso # (Auto) 0.01 (0.01-0.08) K/mm3 Sodium 137 (136-145) mEq/L Potassium 4.0 (3.5-5.1) mEq/L Chloride 103 (98-107) mEq/L Carbon Dioxide 26 (21-32) mEq/L Anion Gap 12.0 (5-15) BUN 11 (7-18) mg/dL Creatinine 0.9 (0.55-1.02) mg/dL Est Cr Clr Drug Dosing 67.03 mL/min Estimated GFR (MDRD) > 60 (>60) mL/min BUN/Creatinine Ratio 12.2 L (14-18) Glucose 108 H (74-106) mg/dL Calcium 8.9 (8.5-10.1) mg/dL Total Bilirubin 0.2 (0.2-1.0) mg/dL AST 14 L (15-37) U/L ALT 31 (14-59) U/L Alkaline Phosphatase 80 (46-116) U/L C-Reactive Protein 0.9 (<1.0) mg/dL Total Protein 7.5 (6.4-8.2) g/dl Albumin 4.0 (3.4-5.0) g/dl Globulin 3.5 gm/dL Albumin/Globulin Ratio 1.1 (1-2) Urine Color Light yellow (Yellow) Urine Appearance Clear (Clear) Urine pH 6.5 (5.0-8.0) Ur Specific [place] 1.010 (1.005-1.030) Urine Protein Negative (Negative) Urine Glucose (UA) Negative (Negative) Urine Ketones Negative (Negative) Urine Occult Blood Negative (Negative) Urine Nitrite Negative (Negative) Urine Bilirubin Negative (Negative) Urine Urobilinogen 0.2 (0.2-1.0) Ur Leukocyte Esterase Negative (Negative) Urine RBC Not seen (0-5) /hpf Urine WBC 0-5 (0-5) /hpf Ur Epithelial Cells Not seen (0-5) /hpf Urine Bacteria Not seen (FEW) /hpf Urine Mucus Not seen (FEW) /hpf - Exam General: Alert, Oriented GI/Abdominal Exam: Soft, Non-Tender, No Organomegaly, No Distention, No Mass (Female) Exam: Normal External Exam, Other (granulation tissue at apex of vagina treated with Silver Nitrate x6 sticks, no adnexal masses, normal cuff tenderness for post op status) Consult PN Assessment/Plan Procedures: Procedures ASSAY OF CREATININE (10/26/17) ASSAY OF FREE THYROXINE (06/03/16) ASSAY OF GONADOTROPIN (FSH) (06/03/16) ASSAY OF GONADOTROPIN (LH) (06/03/16) ASSAY OF TROPONIN QUANT (05/11/17) ASSAY THYROID STIM HORMONE (06/03/16) BLOOD TYPING SEROLOGIC ABO (10/26/17) BLOOD TYPING SEROLOGIC RH(D) (10/26/17) C-REACTIVE PROTEIN (05/11/17) CHEST X-RAY 2VW FRONTAL&LATL (08/11/15) COMPLETE CBC W/AUTO DIFF WBC (10/26/17) COMPREHEN METABOLIC PANEL (05/11/17) CT HEAD/BRAIN W/O DYE (08/27/14) CULTURE OTHR SPECIMN AEROBIC (06/20/15) EMERGENCY DEPT VISIT (10/26/17) EMERGENCY DEPT VISIT (05/11/17) EMERGENCY DEPT VISIT (08/11/15) HYDRATE IV INFUSION ADD-ON (10/26/17) INFLUENZA ASSAY W/OPTIC (05/11/17) METABOLIC PANEL TOTAL CA (10/26/17) RBC ANTIBODY SCREEN (10/26/17) ROUTINE VENIPUNCTURE (10/26/17) THER/PROPH/DIAG INJ IV PUSH (10/26/17) TRANSVAGINAL US NON-OB (11/28/14) TX/PRO/DX INJ NEW DRUG ADDON (10/26/17) URINALYSIS AUTO W/SCOPE (10/26/17) URINE CULTURE/COLONY COUNT (10/26/17) URINE TEST (10/26/17) VAG HYST INCLUDING T/O (10/26/17) X-RAY EXAM CHEST 2 VIEWS (05/11/17) (1) Granulation tissue of vaginal cuff SNOMED Code(s): 776372193 Code(s): N89.8 - OTHER SPECIFIED NONINFLAMMATORY DISORDERS OF VAGINA Current Visit: Yes (2) Vaginal cuff cellulitis SNOMED Code(s): 0343719794694 Code(s): N76.0 - ACUTE VAGINITIS Current Visit: Yes (3) Burning with urination SNOMED Code(s): 58402302 Code(s): R30.0 - DYSURIA Current Visit: Yes (4) Pain in pelvis SNOMED Code(s): 11122232 Code(s): R10.2 - PELVIC AND PERINEAL PAIN Current Visit: Yes Problem List Initiated/Reviewed/Updated: No Plan: Sent prescription to [facility] Keflex 500 mg disp 30 si initially, then one po q6h until complete [facility] vaginal 1 tube sig: one applic hs/vag x7 nights Fluconazole 150 take if sever itching occurs day 1 of onset and day 3 Probiotics po OTC Call wednesday for an appointment to see Dr Noble next week-probably if possible.
== END 2017-11-07 14:10 | disposition home or self-care (01) ==
LOC: JD.ED 12:06
DX: R10.2 Pelvic and perineal pain (principal); R39.89 Other symptoms and signs involving the genitourinary system; Z79.899 Other long term (current) drug therapy
CPT/HCPCS: 36415; 80053; 81001; 85025; 86140; 87086; 99283

== ENCOUNTER 2019-03-17 14:18 | Emergency (ER) | payer BC ==
[2019-03-17 14:46] VITALS: BP 124/75; PULSE 70
--- NOTE | 2019-03-17 14:56 | EDM.PDOC ---
ED HPI GENERAL MEDICAL PROBLEM - General Chief Complaint: Headache Stated Complaint: HEADACHES AND DIZZY Time Seen by Provider: 03/17/19 14:52 Source of Information: Reports: Patient History Limitations: Reports: No Limitations - History of Present Illness INITIAL COMMENTS - FREE TEXT/NARRATIVE: 38-year-old female presents to the ED with a constant pounding throbbing headache felt. Across both frontal size of her scalp and at the base of her neck under her ears. This been present pretty well since Wednesday last week February 10. This subsequently she developed nausea and vomiting of bilious emesis. She did eat a bit today and so far to stay down but it feels like it's going to come back up. She never did develop diarrhea. She does have a mild productive sounding cough at times. She does have some chills but no defined fever. She was seen in the walk-in clinic and received a shot she believes of Toradol IM for headache relief which really didn't help much. She doesn't get much headaches. Denies any falls or recent injuries. Onset: Gradual Onset Date: 03/13/19 Duration: Day(s):, Constant, Getting Worse Location: Reports: Head (Headache is getting worse), Other (Nausea and vomiting has been intermittent and waxing and waning.) Severity: Moderate Improves with: Reports: None Worsens with: Reports: None Context: Denies: Activity, Exercise, Lifting, Sick Contact, Trauma, Other Associated Symptoms: Reports: Cough, Fever/Chills, Headaches, Loss of Appetite, Malaise, Nausea/Vomiting (Chills but no fever). Denies: Confusion, Chest Pain, cough w sputum, Diaphoresis, Rash, Seizure, Shortness of Breath, Syncope Treatments COMPTROLLER: Reports: Acetaminophen Head Pain Score (Numeric/FACES): 8 - Related Data Allergies Allergy/AdvReac Type Severity Reaction Status Date / Time No Known Allergies Allergy Verified 03/17/19 14:42 Home Meds: Home Meds Ketorolac [Toradol] 10 mg PO TID PRN #6 tab 03/17/19 [Rx] LORazepam 0.5 mg PO DAILY 03/17/19 [History] Metoclopramide HCl [Reglan] 10 mg PO Q8H #6 tablet 03/17/19 [Rx] Venlafaxine [Effexor] 03/17/19 [History] Past Medical History - Past Health History Medical/Surgical History: Denies Medical/Surgical History HEENT 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: Impaired Vision Cardiovascular 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: None Respiratory 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: None Gastrointestinal 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: Pancreatitis Genitourinary 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: None CABLE ARMORER 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: , Other (See Below) Other CABLE ARMORER History: dysmenorrhea, irregular menses, menorrhagia, pelvic congestion syndrome Musculoskeletal 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: None Neurological 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: None Psychiatric 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: Anxiety, Depression, Other (See Below) Other Psychiatric History: insomnia Endocrine/Metabolic 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: None Hematologic 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: None Immunologic 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: None Oncologic (Cancer) 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: None Dermatologic 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: None - Past Surgical History Head Surgeries/Procedures: Reports: None HEENT Surgical 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: None Cardiovascular Surgical 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: None Respiratory Surgical 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: None GI Surgical 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: Cholecystectomy Female Surgical 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: None, Hysterectomy Endocrine Surgical 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: None Neurological Surgical 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: None Musculoskeletal Surgical 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: None Dermatological Surgical 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: None Social & Family History - Family History Family Medical History: Noncontributory - Caffeine Use Caffeine Use: Reports: Tea - Living Situation & Occupation Living situation: Reports: Occupation: Employed ED ROS GENERAL - Review of Systems Review Of Systems: See Below Constitutional: Reports: Chills, Malaise, Weakness, Fatigue, Decreased Appetite , Weight Loss. Denies: Fever HEENT: Reports: Vertigo Respiratory: Reports: Cough. Denies: Shortness of Breath, Wheezing, Pleuritic Chest Pain, Hemoptysis, Other Cardiovascular: Reports: Lightheadedness. Denies: Blood Pressure Problem, Claudication, Dyspnea on Exertion, Edema, Orthopnea Endocrine: Reports: Fatigue GI/Abdominal: Reports: Abdominal Pain (Mostly periumbilical and epigastric.), Nausea, Vomiting. Denies: Diarrhea (Intermittent nausea and vomiting of bilious material without blood. No diarrhea) : Reports: Frequency (Urine is dark in color) Musculoskeletal: Reports: Muscle Pain Skin: Reports: No Symptoms Neurological: Reports: Headache. Denies: Tremors, Trouble Speaking, Difficulty Walking, Weakness Psychiatric: Reports: No Symptoms Hematologic/Lymphatic: Reports: No Symptoms Immunologic: Reports: No Symptoms - Physical Exam Exam: See Below Exam Limited By: No Limitations General Appearance: Alert, WD/WN, No Apparent Distress, Other (Vital signs are normal. She is afebrile at this time. O2 sats 100%. BP 05/12/74 respiratory 16.) Eye Exam: Bilateral Eye: Normal Inspection Ears: Normal TMs Throat/Mouth: Other (Tongue is very dry and coated.) Head Exam: Atraumatic, Normocephalic Neck: Normal Inspection, Supple, Non-Tender, Full Range of Motion. No: Lymphadenopathy (L), Lymphadenopathy (R) Respiratory/Chest: No Respiratory Distress, Lungs Clear, Normal Breath Sounds, No Accessory Muscle Use, Chest Non-Tender Cardiovascular: Normal Peripheral Pulses, Regular Rate, Rhythm, No Edema, No Gallop, No Murmur, No Rub GI/Abdominal: Normal Bowel Sounds, Soft, No Organomegaly, No Abnormal Bruit, No Mass, Pelvis Stable, Tender, Other (Has had previous cholecystectomy). No: Guarding, Rigid, Rebound Rectal (Female) Exam: Normal Exam Neuro Exam (Abbreviated): Alert, Oriented, CN II-XII Intact, Normal Cognition Back Exam: Normal Inspection, Full Range of Motion. No: CVA Tenderness (L), CVA Tenderness (R) Extremities: Normal Inspection, Normal Range of Motion, Non-Tender Psychiatric: Normal Affect, Normal Mood Skin Exam: Warm, Dry, Intact, Normal Color, No Rash Course - Vital Signs Last Recorded V/S: Last Vital Signs Temp 36.7 C 03/17/19 14:44 Pulse 70 03/17/19 14:44 Resp 16 03/17/19 14:44 BP 124/75 03/17/19 14:44 Pulse Ox 100 03/17/19 14:44 Orthostatic Blood Pressure [ 128/80 Standing] Orthostatic Blood Pressure [ 124/77 Supine] - Orders/Labs/Meds Orders: Active Orders 24 hr Category Date Time Status Orthostatic Vital Signs [RC] ASDIRECTED Care 03/17/19 14:55 Active Chest 1V Frontal [CR] Stat Exams 03/17/19 14:53 Taken Dextrose 5%-Lactated Ringers 1,000 ml Med 03/17/19 15:00 Active IV ASDIRECTED Ketorolac [Toradol] Med 03/17/19 15:15 Active 30 mg IVPUSH ONETIME Ondansetron [Zofran] 4 mg Med 03/17/19 15:57 Active Sodium Chloride 0.9% [Normal Saline] 50 ml IV ONETIME Medication Orders Dextrose/Lactated Ringer's (Dextrose 5%-Lactated Ringers) 1,000 mls @ 999 mls/ hr IV ASDIRECTED [facility] Last Admin: 03/17/19 15:24 Dose: 999 mls/hr Ondansetron HCl 4 mg/ Sodium (Chloride) 52 mls @ 100 mls/hr IV ONETIME ONE Stop: 03/17/19 16:29 Ketorolac Tromethamine (Toradol) 30 mg IVPUSH ONETIME BRANDON Last Admin: 03/17/19 15:24 Dose: 30 mg Labs: Laboratory Tests 03/17/19 03/17/19 03/17/19 Range/Units 15:00 15:09 15:09 WBC 8.37 (3.98-10.04) K/mm3 RBC 4.77 (3.98-5.22) M/mm3 Hgb 14.9 (11.2-15.7) gm/dl Hct 44.2 (34.1-44.9) % MCV 92.7 (79.4-94.8) fl MCH 31.2 (25.6-32.2) pg MCHC 33.7 (32.2-35.5) g/dl RDW Std Deviation 43.4 (36.4-46.3) fL Plt Count 283 (182-369) K/mm3 MPV 9.5 (9.4-12.3) fl Neut % (Auto) 63.3 (34.0-71.1) % Lymph % (Auto) 25.6 (19.3-51.7) % [place] % (Auto) 8.7 (4.7-12.5) % Eos % (Auto) 1.1 (0.7-5.8) Baso % (Auto) 0.2 (0.1-1.2) % Neut # (Auto) 5.30 (1.56-6.13) K/mm3 Lymph # (Auto) 2.14 (1.18-3.74) K/mm3 [place] # (Auto) 0.73 H (0.24-0.36) K/mm3 Eos # (Auto) 0.09 (0.04-0.36) K/mm3 Baso # (Auto) 0.02 (0.01-0.08) K/mm3 Sodium 137 (136-145) mEq/L Potassium 3.7 (3.5-5.1) mEq/L Chloride 100 (98-107) mEq/L Carbon Dioxide 29 (21-32) mEq/L Anion Gap 11.7 (5-15) BUN 9 (7-18) mg/dL Creatinine 0.7 (0.55-1.02) mg/dL Est Cr Clr Drug Dosing 85.34 mL/min Estimated GFR (MDRD) > 60 (>60) mL/min BUN/Creatinine Ratio 12.9 L (14-18) Glucose 105 (74-106) mg/dL Calcium 9.8 (8.5-10.1) mg/dL Total Bilirubin 0.2 (0.2-1.0) mg/dL AST 14 L (15-37) U/L ALT 43 (14-59) U/L Alkaline Phosphatase 86 (46-116) U/L C-Reactive Protein 0.3 (<1.0) mg/dL Total Protein 7.9 (6.4-8.2) g/dl Albumin 4.4 (3.4-5.0) g/dl Globulin 3.5 gm/dL Albumin/Globulin Ratio 1.3 (1-2) Urine Color Light yellow (Yellow) Urine Appearance Clear (Clear) Urine pH 7.0 (5.0-8.0) Ur Specific [place] 1.015 (1.005-1.030) Urine Protein Negative (Negative) Urine Glucose (UA) Negative (Negative) Urine Ketones Negative (Negative) Urine Occult Blood Trace-intact H (Negative) Urine Nitrite Negative (Negative) Urine Bilirubin Negative (Negative) Urine Urobilinogen 0.2 (0.2-1.0) Ur Leukocyte Esterase Negative (Negative) Urine RBC Not seen (0-5) /hpf Urine WBC Not seen (0-5) /hpf Ur Squamous Epith Cells 0-5 (0-5) /hpf Urine Bacteria Occasional (FEW) /hpf Urine Mucus Not seen (FEW) /hpf Meds: Medications Generic Name Dose Route Start Last Admin Trade Name Freq PRN Reason Stop Dose Admin Dextrose/Lactated Ringer's 1,000 mls @ 999 mls/hr 03/17/19 15:00 03/17/19 15: 24 Dextrose 5%-Lactated Ringers IV 999 mls/hr ASDIRECTED BRANDON Administration Ondansetron HCl 4 mg/ Sodium 52 mls @ 100 mls/hr 03/17/19 15:57 Chloride IV 03/17/19 16:29 ONETIME ONE Ketorolac Tromethamine 30 mg 03/17/19 15:15 03/17/19 15:24 Toradol IVPUSH 30 mg ONETIME BRANDON Administration Discontinued Medications Generic Name Dose Route Start Last Admin Trade Name Alia PRN Reason Stop Dose Admin Diphenhydramine HCl 12.5 mg 03/17/19 15:01 03/17/19 15:26 Benadryl IVPUSH 03/17/19 15:02 Not Given ONETIME ONE Hydromorphone HCl 0.5 mg 03/17/19 15:03 03/17/19 15:24 Dilaudid IVPUSH 03/17/19 15:04 0.5 mg ONETIME ONE Administration Hydromorphone HCl 0.5 mg 03/17/19 15:57 Dilaudid IVPUSH 03/17/19 15:58 ONETIME ONE Metoclopramide HCl 7.5 mg 03/17/19 15:01 03/17/19 15:24 Reglan IVPUSH 03/17/19 15:02 7.5 mg ONETIME ONE Administration Ondansetron HCl Confirm 03/17/19 16:16 Zofran Administered 03/17/19 16:17 Dose 4 mg .ROUTE .[facility] ONE - Radiology Interpretation Free Text/Narrative:: 38-year-old Female presents the ED with a severe headache across both frontal aspects of her forehead and at the base of her scalp for the last 5 days. Headache came first followed by nausea and vomiting. She's had no diarrhea. Chills but no fever. Decreased appetite having kept down some solids for the first time today. Denies any genitourinary complaints. She does have a mild cough intermittently productive. Examination is completely normal with normal vital signs. Plan she does appear volume depleted. IV will be D5 Ringer's lactate at open. Given Toradol 30 mg IV for headache relief with Dilaudid 0.5 mg IV Benadryl 12.5 mg IV and Reglan 7.5 mg IV for headache relief. Should also help with nausea relief. Routine labs to be collected - Re-Assessments/Exams Free Text/Narrative Re-Assessment/Exam: 03/17/19 15:40 Labs reveal a normal white count at 8.37. Auto differential 63.3 % neutrophils. Hemoglobin is 14.9 with hematocrit of 44.2. MCV is 92.7 platelet count 283,000. Urinalysis shows trace of occult blood but no signs of infection. Chest x-ray done portable is within normal limits as well showing no signs of any pneumonia. Visualized portion of the lungs are clear. Cardiac silhouette normal in size. 03/17/19 15:58 she reports she is still mildly nauseated and has a headache rated at 5 out of 10. Dilaudid 0.5 mg IV and give her Zofran 4 mg IV for nause relief. Departure - Departure Time of Disposition: 16:21 Disposition: Home, Self-Care 01 Condition: Fair Clinical Impression: Intractable nausea and vomiting Migraine headache Qualifiers: Migraine type: without aura Status migrainosus presence: without status migrainosus Intractability: not intractable Qualified Code(s): G43.009 - Migraine without aura, not intractable, without status migrainosus - Discharge Information *PRESCRIPTION DRUG MONITORING PROGRAM REVIEWED*: Not Applicable *COPY OF PRESCRIPTION DRUG MONITORING REPORT IN PATIENT JAIRO: Not Applicable Prescriptions: Ketorolac [Toradol] 10 mg PO TID PRN #6 tab PRN Reason: Migraine headache relief Metoclopramide HCl [Reglan] 10 mg PO Q8H #6 tablet Instructions: Recurrent Migraine Headache, [id number] Referrals: Kelly Ness NP [Primary Care Provider] - Forms: ED Department Discharge Additional Instructions: Evaluation the emergent today in regards to a migraine headache for the last 3 days associated with intractable nausea and vomiting which has created some degree of dehydration. Chest do not reveal any signs of serious underlying infection. Rehydrated with a liter of IV fluids well in the ED and initial treatment was with Benadryl 12.5 mg and Reglan 7.5 mg IV for nausea relief and pain medication Toradol 30 mg with Dilaudid 0.5 g IV for pain relief. After 15 minutes postingestion of medication you're still having a significant headache and associated nausea. Therefore you were given Wellbutrin 4 mg IV for nausea relief but decided not to take the Dilaudid 0.5 mg I Suggest home to sleep restfully couple of hours if possible. I've written a prescription for one tablet of Reglan 10 mg strength with Toradol 10 mg strength to be taken together at the onset of a severe headache as this often will report a bad migraine. He can be used every 8 hours if needed. I've written 6 tablets of each. - My Orders Last 24 Hours: My Active Orders 03/17/19 14:53 Chest 1V Frontal [CR] Stat 03/17/19 14:55 Orthostatic Vital Signs [RC] ASDIRECTED 03/17/19 15:00 Dextrose 5%-Lactated Ringers 1,000 ml IV ASDIRECTED 03/17/19 15:15 Ketorolac [Toradol] 30 mg IVPUSH ONETIME 03/17/19 15:57 Ondansetron [Zofran] 4 mg Sodium Chloride 0.9% [Normal Saline] 50 ml IV ONETIME - Assessment/Plan Last 24 Hours: My Active Orders 03/17/19 14:53 Chest 1V Frontal [CR] Stat 03/17/19 14:55 Orthostatic Vital Signs [RC] ASDIRECTED 03/17/19 15:00 Dextrose 5%-Lactated Ringers 1,000 ml IV ASDIRECTED 03/17/19 15:15 Ketorolac [Toradol] 30 mg IVPUSH ONETIME 03/17/19 15:57 Ondansetron [Zofran] 4 mg Sodium Chloride 0.9% [Normal Saline] 50 ml IV ONETIME
[2019-03-17] MEDS ORDERED: Dextrose 5%-Lactated Ringers 1,000 ML IV SCH (15:00)
[2019-03-17] MEDS ORDERED: diphenhydrAMINE 50 MG/ML SDV IVPUSH ONE (15:01)
[2019-03-17] MEDS ORDERED: Metoclopramide 10 MG/2 ML SDV IVPUSH ONE (15:01)
[2019-03-17] MEDS ORDERED: HYDROmorphone 0.5 MG/0.5 ML Syringe IVPUSH ONE ×2 (15:03→15:57)
[2019-03-17] MEDS ORDERED: Ketorolac 30 MG/ML SDV IVPUSH SCH (15:15)
[2019-03-17] MEDS ORDERED: Ondansetron 4 MG in Sodium Chloride 0.9% 50 ML IV ONE (15:57)
[2019-03-17] MEDS ORDERED: Ondansetron 4 MG/2 ML SDV ONE (16:16)
[2019-03-17] MEDS ORDERED: Ondansetron 4 MG/2 ML SDV IVPUSH ONE (16:37)
--- NOTE | 2019-03-20 09:12 | CR ---
Chest portable view of the chest was obtained. Comparison: Previous chest x-ray of 05/11/17 and 08/11/15. Heart size and mediastinum are normal. Lungs are clear. Bony structures are grossly intact. Surgical clips noted from prior cholecystectomy. Impression: 1. Nothing acute is seen on portable chest x-ray. Diagnostic code #1 This report was dictated in [place] Standard Time
== END 2019-03-17 16:39 | disposition home or self-care (01) ==
LOC: JD.ED 14:18
DX: G43.009 Migraine without aura, not intractable, without status migrainosus (principal); F41.9 Anxiety disorder, unspecified; F32.9 Major depressive disorder, single episode, unspecified; Z79.899 Other long term (current) drug therapy
CPT/HCPCS: 36415; 71045; 80053; 81001; 85025; 86140; 96361; 96374; 96375; 99284; J1170; J1885; J2405; J2765; J7042

== ENCOUNTER 2019-04-08 21:01 | Emergency (ER) | payer BC ==
[2019-04-08] MEDS ORDERED: Sodium Chloride 0.9% 1,000 ML IV ONE (21:10)
[2019-04-08] MEDS ORDERED: Metoclopramide 10 MG/2 ML SDV IVPUSH ONE (21:10)
[2019-04-08] MEDS ORDERED: Prochlorperazine 10 MG/2 ML SDV IVPUSH ONE (21:10)
[2019-04-08] MEDS ORDERED: Sodium Chloride 0.9% 10 ML Syringe FLUSH PRN (21:10)
[2019-04-08 21:12] VITALS: BP 138/79; PULSE 70
--- NOTE | 2019-04-08 21:12 | EDM.PDOC ---
ED HPI GENERAL MEDICAL PROBLEM - General Chief Complaint: Headache Stated Complaint: VOMITTING AND HEADACHE Time Seen by Provider: 04/08/19 21:04 Source of Information: Reports: Patient History Limitations: Reports: No Limitations - History of Present Illness INITIAL COMMENTS - FREE TEXT/NARRATIVE: Patient's unfortunate 38-year-old [place] female who presents emergency Department today with complaint of bilateral [place] headache. Patient reports that symptoms started this morning and progressively worsened throughout the day. Positive nausea positive vomiting positive photophobia no fever no chills no new rigidity. Patient reports that this headache is "similar to previous headaches". Headache Pain Score (Numeric/FACES): 7 - Related Data Allergies Allergy/AdvReac Type Severity Reaction Status Date / Time diphenhydramine Allergy Other Verified 04/08/19 21:09 [From Benadryl] Home Meds: Home Meds Ketorolac [Toradol] 10 mg PO TID PRN #6 tab 03/17/19 [Rx] LORazepam 0.5 mg PO DAILY 03/17/19 [History] Metoclopramide HCl [Reglan] 10 mg PO Q8H #6 tablet 03/17/19 [Rx] Venlafaxine [Effexor] 03/17/19 [History] Past Medical History - Past Health History Medical/Surgical History: Denies Medical/Surgical History HEENT 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: Impaired Vision Cardiovascular 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: None Respiratory 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: None Gastrointestinal 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: Pancreatitis Genitourinary 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: None LOGISTICS INTERN 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: , Other (See Below) Other LOGISTICS INTERN History: dysmenorrhea, irregular menses, menorrhagia, pelvic congestion syndrome Musculoskeletal 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: None Neurological 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: None Psychiatric 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: Anxiety, Depression, Other (See Below) Other Psychiatric History: insomnia Endocrine/Metabolic 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: None Hematologic 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: None Immunologic 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: None Oncologic (Cancer) 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: None Dermatologic 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: None - Past Surgical History Head Surgeries/Procedures: Reports: None HEENT Surgical 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: None Cardiovascular Surgical 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: None Respiratory Surgical 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: None GI Surgical 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: Cholecystectomy Female Surgical 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: None, Hysterectomy Endocrine Surgical 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: None Neurological Surgical 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: None Musculoskeletal Surgical 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: None Dermatological Surgical 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: None Social & Family History - Family History Family Medical History: Noncontributory - Caffeine Use Caffeine Use: Reports: Tea - Living Situation & Occupation Living situation: Reports: Occupation: Employed ED ROS GENERAL - Review of Systems Review Of Systems: See Below Constitutional: Denies: Fever, Chills GI/Abdominal: Denies: Abdominal Pain, Nausea, Vomiting Neurological: Reports: Headache - Physical Exam Exam: See Below Exam Limited By: No Limitations General Appearance: Alert, WD/WN, Mild Distress Throat/Mouth: Normal Inspection, Normal Lips, Normal Teeth, Normal Gums, Normal Oropharynx, Normal Voice, No Airway Compromise Head Exam: Atraumatic, Normocephalic Neck: Normal Inspection, Supple, Non-Tender, Full Range of Motion Respiratory/Chest: No Respiratory Distress, Lungs Clear, Normal Breath Sounds, No Accessory Muscle Use, Chest Non-Tender Cardiovascular: Normal Peripheral Pulses, Regular Rate, Rhythm, No Edema, No Gallop, No JVD, No Murmur, No Rub GI/Abdominal: Normal Bowel Sounds, Soft, Non-Tender, No Distention, No Abnormal Bruit, No Mass, Pelvis Stable Neuro Exam (Abbreviated): Alert, Oriented, CN II-XII Intact, Normal Cognition, Normal Gait, Normal Reflexes, No Motor/Sensory Deficits Back Exam: Normal Inspection, Full Range of Motion, NT Extremities: Normal Inspection, Normal Range of Motion, Non-Tender, No Pedal Edema, Normal Capillary Refill Skin Exam: Warm, Dry, No Rash Course - Vital Signs Last Recorded V/S: Last Vital Signs Temp 97.9 F 04/08/19 21:09 Pulse 70 04/08/19 21:09 Resp BP 138/79 04/08/19 21:09 Pulse Ox 99 04/08/19 21:09 - Orders/Labs/Meds Orders: Active Orders 24 hr Category Date Time Status Sodium Chloride 0.9% [Saline Flush] Med 04/08/19 21:10 Active 10 ml FLUSH ASDIRECTED PRN Saline Lock Insert [OM.PC] Stat Oth 04/08/19 21:10 Ordered Medication Orders Sodium Chloride (Saline Flush) 10 ml FLUSH ASDIRECTED PRN PRN Reason: Keep Vein Open Last Admin: 04/08/19 21:52 Dose: 10 ml Meds: Medications Generic Name Dose Route Start Last Admin Trade Name Freq PRN Reason Stop Dose Admin Sodium Chloride 10 ml 04/08/19 21:10 04/08/19 21:52 Saline Flush FLUSH 10 ml ASDIRECTED PRN Administration Keep Vein Open Discontinued Medications Generic Name Dose Route Start Last Admin Trade Name Alia PRN Reason Stop Dose Admin Sodium Chloride 1,000 mls @ 1,000 mls/hr 04/08/19 21:10 04/08/19 21:51 Normal Saline IV 04/08/19 22:09 1,000 mls/hr ONETIME ONE Administration Metoclopramide HCl 10 mg 04/08/19 21:10 04/08/19 21:51 Reglan IVPUSH 04/08/19 21:11 10 mg ONETIME ONE Administration Prochlorperazine Edisylate 5 mg 04/08/19 21:10 04/08/19 21:51 Compazine IVPUSH 04/08/19 21:11 5 mg ONETIME ONE Administration - Re-Assessments/Exams Free Text/Narrative Re-Assessment/Exam: 04/08/19 22:11 She reports pain has resolved we will discharge to home Departure - Departure Time of Disposition: 22:11 Disposition: Home, Self-Care 01 Clinical Impression: Migraine - Discharge Information Referrals: Kelly Ness NP [Primary Care Provider] - Forms: ED Department Discharge Additional Instructions: Home, rest are quiet room, return as needed for worsening condition Sepsis Event Note - Focused Exam Vital Signs: Vital Signs Temp Pulse BP Pulse Ox 04/08/19 21:09 97.9 F 70 138/79 99 Date Exam was Performed: 04/08/19 Time Exam was Performed: 22:11 - My Orders Last 24 Hours: My Active Orders 04/08/19 21:10 Sodium Chloride 0.9% [Saline Flush] 10 ml FLUSH ASDIRECTED PRN Saline Lock Insert [OM.PC] Stat - Assessment/Plan Last 24 Hours: My Active Orders 04/08/19 21:10 Sodium Chloride 0.9% [Saline Flush] 10 ml FLUSH ASDIRECTED PRN Saline Lock Insert [OM.PC] Stat
== END 2019-04-08 22:39 | disposition home or self-care (01) ==
LOC: JD.ED 21:01
DX: G43.909 Migraine, unspecified, not intractable, without status migrainosus (principal); F41.9 Anxiety disorder, unspecified; F32.9 Major depressive disorder, single episode, unspecified; Z88.8 Allergy status to other drugs, medicaments and biological substances; Z79.899 Other long term (current) drug therapy
CPT/HCPCS: 96361; 96374; 96375; 99283; J0780; J2765; J7030

== ENCOUNTER 2020-01-12 16:49 | Emergency (ER) | payer SELFPAY | END 2020-01-12 17:11 | LOC: JD.ED 16:49 | DX: Z53.21 Procedure and treatment not carried out due to patient leaving prior to being seen by health care provider (principal) ==

== ENCOUNTER 2020-07-14 16:56 | Emergency (ER) | payer BC ==
[2020-07-14 17:06] VITALS: BP 137/94; PULSE 87
--- NOTE | 2020-07-14 18:15 | EDM.PDOC ---
ED HPI GENERAL MEDICAL PROBLEM - General Chief Complaint: Lower Extremity Injury/Pain Stated Complaint: R FOOT PAIN Time Seen by Provider: 07/14/20 17:06 Source of Information: Reports: Patient, RN Notes Reviewed History Limitations: Reports: No Limitations - History of Present Illness INITIAL COMMENTS - FREE TEXT/NARRATIVE: Patient is a 40-year-old female presenting to the emergency department with complaints of pain to the medial aspect of her right ankle after stepping in a pothole. She has been able to ambulate on the extremity since the time of injury, however states it is painful. Denies any previous fractures to this ankle. - Related Data Allergies Allergy/AdvReac Type Severity Reaction Status Date / Time diphenhydramine Allergy Other Verified 04/08/19 21:09 [From Benadryl] Home Meds: Home Meds Ketorolac [Toradol] 10 mg PO TID PRN #6 tab 03/17/19 [Rx] LORazepam 0.5 mg PO DAILY 03/17/19 [History] Metoclopramide HCl [Reglan] 10 mg PO Q8H #6 tablet 03/17/19 [Rx] Venlafaxine [Effexor] 0 tab PO DAILY 03/17/19 [History] Past Medical History - Past Health History Medical/Surgical History: Denies Medical/Surgical History HEENT 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: Impaired Vision Cardiovascular 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: None Respiratory 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: None Gastrointestinal 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: Pancreatitis Genitourinary 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: None 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 ADMINISTRATOR 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: , Other (See Below) Other REGULATORY ADMINISTRATOR History: dysmenorrhea, irregular menses, menorrhagia, pelvic congestion syndrome Musculoskeletal 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: None Neurological 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: None Psychiatric 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: Anxiety, Depression, Other (See Below) Other Psychiatric History: insomnia Endocrine/Metabolic 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: None Hematologic 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: None Immunologic 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: None Oncologic (Cancer) 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: None Dermatologic 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: None - Past Surgical History Head Surgeries/Procedures: Reports: None HEENT Surgical 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: None Cardiovascular Surgical 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: None Respiratory Surgical 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: None GI Surgical 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: Cholecystectomy Female Surgical 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: None, Hysterectomy Endocrine Surgical 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: None Neurological Surgical 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: None Musculoskeletal Surgical 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: None Dermatological Surgical 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: None Social & Family History - Family History Family Medical History: No Pertinent Family History - Tobacco Use Tobacco Use Status *Q: Never Tobacco User Second Hand Smoke Exposure: No - Caffeine Use Caffeine Use: Reports: None - Recreational Drug Use Recreational Drug Use: No - Living Situation & Occupation Living situation: Reports: Occupation: Employed Review of Systems - Review of Systems Review Of Systems: Comprehensive ROS is negative, except as noted in HPI. ED EXAM, GENERAL - Physical Exam Exam: See Below Exam Limited By: No Limitations General Appearance: Alert, WD/WN, No Apparent Distress Respiratory/Chest: No Respiratory Distress, Lungs Clear, Normal Breath Sounds, No Accessory Muscle Use, Chest Non-Tender Cardiovascular: Normal Peripheral Pulses, Regular Rate, Rhythm, No Edema, No Gallop, No JVD, No Murmur, No Rub Extremities: Other (Mild tenderness to palpation to the medial aspect of the right ankle. No ecchymosis, edema, or deformity noted. CMS intact distal to the injury.) Course - Vital Signs Last Recorded V/S: Last Vital Signs Temp 97.4 F 07/14/20 17:04 Pulse 87 07/14/20 17:04 Resp 16 07/14/20 17:04 BP 137/94 H 07/14/20 17:04 Pulse Ox 95 07/14/20 17:04 - Orders/Labs/Meds Orders: Active Orders 24 hr Category Date Time Status Ankle Min 3V Rt [CR] Stat Exams 07/14/20 17:06 Ordered DME for Discharge [COMM] Routine Oth 07/14/20 18:11 Ordered - Re-Assessments/Exams Free Text/Narrative Re-Assessment/Exam: Patient is a 40-year-old female presenting to the emergency department with complaints of pain to her right medial ankle after stepping in a pothole. On exam, patient has full range of motion of the joint. She has some mild tenderness to palpation over the medial malleolus and down the medial aspect of the right foot. There is no ecchymosis, edema, or deformity. I ordered an x- ray of the right ankle. 07/14/20 18:13 X-ray of the right ankle reviewed by Dr. Scales and myself. There is no evidence of acute fractures. Patient will be provided with an air splint. Recommend weightbearing as tolerated. She declines the need for crutches. Discussed that if she still having significant discomfort after 1 week, she should follow-up in the clinic. Discharge instructions as documented. Departure - Departure Time of Disposition: 18:14 Disposition: Home, Self-Care 01 Condition: Good Clinical Impression: Ankle sprain Qualifiers: Encounter type: initial encounter Involved ligament of ankle: other ligament Laterality: right Qualified Code(s): S93.491A - Sprain of other ligament of right ankle, initial encounter - Discharge Information *PRESCRIPTION DRUG MONITORING PROGRAM REVIEWED*: No *COPY OF PRESCRIPTION DRUG MONITORING REPORT IN PATIENT JAIRO: No Instructions: Ankle Sprain, [id number] Referrals: Kelly Ness NP [Primary Care Provider] - Additional Instructions: You were seen in the emergency department today for pain to your right inner ankle after stepping in a pothole. X-rays were completed and showed no signs of acute fracture. You likely sprained your ankle. You have been provided with a stirrup splint. Wear this for the next few days for comfort. You may then remove it and walk on the ankle once the pain has improved. Recommend intermittent ice and elevation for the next few days. You may use [id number] Tylenol and ibuprofen as needed for discomfort. If you are still experiencing significant discomfort after 1 week, recommend follow-up in the clinic. Return to ER for any new or worsening symptoms of concern. Sepsis Event Note (ED) - Evaluation Sepsis Screening Result: No Definite Risk - Focused Exam Vital Signs: Vital Signs Temp Pulse Resp BP Pulse Ox 07/14/20 17:04 97.4 F 87 16 137/94 H 95 - My Orders Last 24 Hours: My Active Orders 07/14/20 17:06 Ankle Min 3V Rt [CR] Stat 07/14/20 18:11 DME for Discharge [COMM] Routine - Assessment/Plan Last 24 Hours: My Active Orders 07/14/20 17:06 Ankle Min 3V Rt [CR] Stat 07/14/20 18:11 DME for Discharge [COMM] Routine
--- NOTE | 2020-07-14 19:11 | CR ---
Right ankle: 4 views of the right ankle were obtained. Comparison: No prior right ankle study is available. No calcaneal spurs are seen. Ankle mortise is symmetric. Minimal sclerosis is seen within the fibular shaft most likely due to old injury. No acute fracture, dislocation or other bony abnormality is appreciated. Impression: 1. Nothing acute is appreciated on 4 view right ankle exam. Diagnostic code #2
== END 2020-07-14 18:25 | disposition home or self-care (01) ==
LOC: JD.ED 16:56
DX: S93.491A Sprain of other ligament of right ankle, initial encounter (principal); Z88.8 Allergy status to other drugs, medicaments and biological substances; W22.8XXA Striking against or struck by other objects, initial encounter
CPT/HCPCS: 73610-26-RT; 73610-RT; 99282; 99283

== ENCOUNTER 2020-08-25 08:30 | Emergency (ER) | payer BC ==
[2020-08-25 08:40] VITALS: BP 142/87; PULSE 73
[2020-08-25] MEDS ORDERED: Amoxicillin 500 MG Cap PO ONE (10:04)
--- NOTE | 2020-08-25 10:09 | EDM.PDOC ---
ED HPI GENERAL MEDICAL PROBLEM - General Chief Complaint: ENT Problem Stated Complaint: ABDOMIANL PAIN/LT EAR COMPLAINT Time Seen by Provider: 08/25/20 08:57 Source of Information: Reports: Patient, RN Notes Reviewed - History of Present Illness INITIAL COMMENTS - FREE TEXT/NARRATIVE: 40 yr old female with bilat ear ache, pressure for about 5 days. Mild nasal and sinus congestion. No fever or chills, no drainage. Also having low mid abd discomfort for about a week, no voiding sx. Occasional nausea, no vomiting or diarrhea. Hx of prior hysterectomy. Abdominal Pain Score (Numeric/FACES): 6 Right Ear Pain Score (Numeric/FACES): 5 - Related Data Allergies Allergy/AdvReac Type Severity Reaction Status Date / Time diphenhydramine Allergy Other Verified 08/25/20 08:41 [From Benadryl] Home Meds: Home Meds LORazepam 0.5 mg PO TID PRN 03/17/19 [History] Venlafaxine [Effexor] 75 tab PO DAILY 03/17/19 [History] Amoxicillin 500 mg PO TID #20 capsule 08/25/20 [Rx] Metoprolol Succinate [Toprol Xl] 50 mg PO DAILY 08/25/20 [History] Past Medical History - Past Health History Medical/Surgical History: Denies Medical/Surgical History HEENT 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: Impaired Vision Cardiovascular 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: None Respiratory 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: None Gastrointestinal 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: Pancreatitis Genitourinary 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: None 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: , 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 (See Below) 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 History: dysmenorrhea, irregular menses, menorrhagia, pelvic congestion syndrome, hysterectomy Musculoskeletal 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: None Neurological 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: None Psychiatric 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: Anxiety, Depression, Other (See Below) Other Psychiatric History: insomnia Endocrine/Metabolic 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: None Hematologic 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: None Immunologic 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: None Oncologic (Cancer) 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: None Dermatologic 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: None - Infectious Disease History Infectious Disease 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: Novel Coronavirus - Past Surgical History Head Surgeries/Procedures: Reports: None HEENT Surgical 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: None Cardiovascular Surgical 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: None Respiratory Surgical 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: None GI Surgical 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: Cholecystectomy Female Surgical 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: None, Hysterectomy Endocrine Surgical 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: None Neurological Surgical 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: None Musculoskeletal Surgical 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: None Dermatological Surgical 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: None Social & Family History - Family History Family Medical History: No Pertinent Family History - Tobacco Use Tobacco Use Status *Q: Never Tobacco User - Caffeine Use Caffeine Use: Reports: None - Recreational Drug Use Recreational Drug Use: No - Living Situation & Occupation Living situation: Reports: Occupation: Employed ED ROS ENT - Review of Systems Review Of Systems: See Below Constitutional: Denies: Fever, Chills, Diaphoresis HEENT: Reports: Ear Pain. Denies: Ear Discharge, Throat Pain Respiratory: Denies: Cough Cardiovascular: Denies: Chest Pain GI/Abdominal: Reports: Abdominal Pain, Nausea. Denies: Constipation, Diarrhea, Vomiting : Reports: No Symptoms Musculoskeletal: Reports: No Symptoms Skin: Reports: No Symptoms Neurological: Reports: Dizziness. Denies: Trouble Speaking, Difficulty Walking ED EXAM, ENT - Physical Exam Exam: See Below General Appearance: Alert, No Apparent Distress Ears: Normal External Exam, Normal Canal, TM Dullness, Other (fluid behind both TM's) Mouth/Throat: Normal Inspection Head: Atraumatic Neck: Supple Respiratory/Chest: No Respiratory Distress, Lungs Clear, Normal Breath Sounds Cardiovascular: Regular Rate, Rhythm GI/Abdominal: Soft, Tender (very mild tenderness lower mid abd. No mass pa lpable, upper and mid abd soft and nontender) Neurological: Alert, Oriented, No Motor/Sensory Deficits Skin: Warm, Dry, Normal Color Course - Vital Signs Last Recorded V/S: Last Vital Signs Temp 97.5 F 08/25/20 08:39 Pulse 73 08/25/20 08:39 Resp 14 08/25/20 08:39 BP 142/87 H 08/25/20 08:39 Pulse Ox 100 08/25/20 08:39 - Orders/Labs/Meds Labs: Laboratory Tests 08/25/20 08/25/20 Range/Units 09:15 09:24 WBC 6.22 (3.98-10.04) K/mm3 RBC 4.33 (3.98-5.22) M/mm3 Hgb 13.6 (11.2-15.7) gm/dl Hct 41.3 (34.1-44.9) % MCV 95.4 H (79.4-94.8) fl MCH 31.4 (25.6-32.2) pg MCHC 32.9 (32.2-35.5) g/dl RDW Std Deviation 43.2 (36.4-46.3) fL Plt Count 265 (182-369) K/mm3 MPV 9.5 (9.4-12.3) fl Neut % (Auto) 64.6 (34.0-71.1) % Lymph % (Auto) 23.3 (19.3-51.7) % [place] % (Auto) 10.3 (4.7-12.5) % Eos % (Auto) 1.0 (0.7-5.8) Baso % (Auto) 0.2 (0.1-1.2) % Neut # (Auto) 4.02 (1.56-6.13) K/mm3 Lymph # (Auto) 1.45 (1.18-3.74) K/mm3 [place] # (Auto) 0.64 H (0.24-0.36) K/mm3 Eos # (Auto) 0.06 (0.04-0.36) K/mm3 Baso # (Auto) 0.01 (0.01-0.08) K/mm3 Urine Color Light yellow (Yellow) Urine Appearance Clear (Clear) Urine pH 7.0 (5.0-8.0) Ur Specific [place] 1.020 (1.005-1.030) Urine Protein Negative (Negative) Urine Glucose (UA) Negative (Negative) Urine Ketones Negative (Negative) Urine Occult Blood Trace-intact H (Negative) Urine Nitrite Negative (Negative) Urine Bilirubin Negative (Negative) Urine Urobilinogen 0.2 (0.2-1.0) Ur Leukocyte Esterase Negative (Negative) Urine RBC 0-5 (0-5) /hpf Urine WBC 0-5 (0-5) /hpf Ur Epithelial Cells 0-5 (0-5) /hpf Urine Bacteria Not seen (FEW) /hpf Urine Mucus Not seen (FEW) /hpf Meds: Medications Discontinued Medications Generic Name Dose Route Start Last Admin Trade Name Freq PRN Reason Stop Dose Admin Amoxicillin 500 mg 08/25/20 10:04 08/25/20 10:09 Amoxicillin 500 Mg Cap PO 08/25/20 10:05 500 mg ONETIME ONE Administration - Re-Assessments/Exams Free Text/Narrative Re-Assessment/Exam: 08/25/20 10:26 CBC, UA nl, discharge instr. as documented. Departure - Departure Time of Disposition: 10:06 Disposition: Home, Self-Care 01 Condition: Fair Clinical Impression: Otitis media, Abdominal pain - Discharge Information Prescriptions: Amoxicillin 500 mg PO TID #20 capsule Instructions: Otitis Media, Adult, [id number] Referrals: Kelly Ness [facility] [employer] [Primary Care Provider] - Forms: ED Department Discharge Additional Instructions: Amoxicillin 500 mg 3 times daily for 1 week or until gone. Prescription has been sent to [facility]. They open at 12 noon today, close at 4 PM. Follow up with your medical provider if abdominal/pelvic discomfort not better within 2 to 3 days as expected or if worsening in any way. Pelvic US a consideration if this persists or gets worse. Tylenol 2 to 3 times daily as needed. Sepsis Event Note (ED) - Evaluation Sepsis Screening Result: No Definite Risk - Focused Exam Vital Signs: Vital Signs Temp Pulse Resp BP Pulse Ox 08/25/20 08:39 97.5 F 73 14 142/87 H 100
== END 2020-08-25 10:19 | disposition home or self-care (01) ==
LOC: JD.ED 08:30
DX: H66.93 Otitis media, unspecified, bilateral (principal); R10.9 Unspecified abdominal pain; Z86.16 Personal history of COVID-19; Z88.8 Allergy status to other drugs, medicaments and biological substances
CPT/HCPCS: 36415; 81001; 85025; 99284; A9270; 99283